=== PATIENT | male | born 1945 | race Caucasian/White ===

== ENCOUNTER 2022-03-19 07:58 | Inpatient (IN) | payer OTHER ==
[~2022-03-19] VITALS: Ht 180.3 cm; Wt 142.7 kg
[2022-03-19 08:00] VITALS: BP 113/62
[2022-03-19 08:51] LABS: BASO % 0.3 % (0.0-1.0); EOS # 0.3 10*3/uL (0.0-0.4); EOS % 1.9 % (1.0-4.0); HEMATOCRIT 37.5 % (42.0-52.0); MEAN CELL VOLUME 93.3 fl (80.0-94.0); MEAN CORPUSCULAR HGB 30.6 pg (27.0-31.0); MEAN CORPUSCULAR HGB CONC 32.8 g/dl (33.0-37.0); MEAN PLATELET VOLUME 10.7 fl (9.6-12.3); MONO # 1.4 10*3/uL (0.1-1.0); MONO % 9.6 % (3.0-9.0); NEUT # 11.8 10*3/uL (2.3-7.9); NEUT % 80.7 % (47.0-73.0); PLATELET COUNT AUTOMATED 213 10*3/uL (130-400); RED BLOOD COUNT 4.02 10*6/uL (4.50-5.90); RED CELL DISTRI WIDTH 14.1 % (0-14.5); WHITE BLOOD COUNT 14.7 10*3/uL (4.8-10.8)
[2022-03-19 09:07] LABS: ACT PARTIAL THROMBO TIME 36.7 SECONDS (20.0-32.1); INTERNATIONAL NORM RATIO 1.2 (2.0-3.5)
[2022-03-19 09:08] LABS: ALKALINE PHOSPHATASE 56 U/L (46-116); BUN 25 mg/dl (9-23); CHLORIDE 99 mmol/L (98-107); LIPASE 27 U/L (12-53); POTASSIUM 4.5 mmol/L (3.4-5.1); SGPT/ALT 7 U/L (10-49)
[2022-03-19 09:08] LABS: BILIRUBIN Negative (Negative); BLOOD 3+ (Negative); CLARITY Turbid (Clear); COLOR Yellow (Yellow); GLUCOSE 3+ (Negative); KETONE Negative (Negative); LEUKO ESTERASE 3+ (Negative); NITRITE Negative (Negative); SPECIFIC GRAVITY 1.025 (1.001-1.030)
[2022-03-19 09:20] LABS: WBC TNTC wbc/hpf (0-5)
[2022-03-19] MEDS ORDERED: XARELTO2.5 MG PO (09:53)
[2022-03-19] MEDS ORDERED: LYRICA200 M1 PO (09:53)
[2022-03-19 13:25] VITALS: BP 116/57
[2022-03-19 14:00] VITALS: BP 111/51
[2022-03-19] MEDS ORDERED: METFORMIN HYDR500 MG PO (14:43)
[2022-03-19] MEDS ORDERED: TROSPIUM CHLORI20 M1 PO (14:44)
[2022-03-19] MEDS ORDERED: ALTACE5 MG PO (14:45)
[2022-03-19] MEDS ORDERED: LASIX40 MG PO (14:46)
[2022-03-19] MEDS ORDERED: PREGABALIN300 MG PO (14:46)
[2022-03-19] MEDS ORDERED: JARDIANCE25 MG PO (14:47)
[2022-03-19] MEDS ORDERED: PRAVASTATIN SOD40 MG PO (14:47)
[2022-03-19 16:00] VITALS: BP 113/50
[2022-03-19 20:00] VITALS: BP 151/74
[2022-03-20] VITALS: BP 96/52
[2022-03-20 04:35] VITALS: BP 110/58
[2022-03-20 07:24] LABS: BASO # 0.1 10*3/uL (0.0-0.1); BASO % 0.3 % (0.0-1.0); EOS # 0.1 10*3/uL (0.0-0.4); EOS % 0.6 % (1.0-4.0); HEMATOCRIT 37.1 % (42.0-52.0); LYMPH % 6.7 % (27.0-41.0); MEAN CELL VOLUME 90.9 fl (80.0-94.0); MEAN CORPUSCULAR HGB 29.9 pg (27.0-31.0); MEAN CORPUSCULAR HGB CONC 32.9 g/dl (33.0-37.0); MEAN PLATELET VOLUME 11.1 fl (9.6-12.3); MONO # 1.4 10*3/uL (0.1-1.0); MONO % 9.6 % (3.0-9.0); NEUT # 11.9 10*3/uL (2.3-7.9); NEUT % 82.4 % (47.0-73.0); PLATELET COUNT AUTOMATED 223 10*3/uL (130-400); RED BLOOD COUNT 4.08 10*6/uL (4.50-5.90); RED CELL DISTRI WIDTH 14.2 % (0-14.5); WHITE BLOOD COUNT 14.5 10*3/uL (4.8-10.8)
[2022-03-20 07:59] LABS: BUN 18 mg/dl (9-23); CHLORIDE 98 mmol/L (98-107); CHOLESTEROL 119 mg/dL (<200); FREE T4 1.17 ng/dl (0.89-1.76); LDL CHOLESTEROL 69 mg/dL (9-159); POTASSIUM 4.3 mmol/L (3.4-5.1); THYROID STIM HORMONE (HS) 2.338 uIU/ml (0.550-4.780); TRIGLYCERIDES 77 mg/dl (<150)
[2022-03-20 08:00] VITALS: BP 133/51
[2022-03-20 12:00] VITALS: BP 132/55
[2022-03-20] MEDS ORDERED: AMOX-CLAV 875-1 EACH PO (12:29)
[2022-03-20] MEDS ORDERED: XARE20MG PO (12:29)
[2022-03-20] MEDS ORDERED: XARELTO20 M1 PO (12:38)
== END 2022-03-20 15:33 | disposition home or self-care (01) | DRG 872 ==
LOC: ED 07:58 → EDHOLD 11:53 → 4E 11:53
PROVIDERS: Emergency Medicine; Registered Nurse; ADMIT Internal Medicine; ATTEND Internal Medicine
DX: A41.9 Sepsis, unspecified organism (principal); N30.00 Acute cystitis without hematuria; E44.1 Mild protein-calorie malnutrition; C61 Malignant neoplasm of prostate; I48.91 Unspecified atrial fibrillation; R26.81 Unsteadiness on feet; J44.9 Chronic obstructive pulmonary disease, unspecified; E11.40 Type 2 diabetes mellitus with diabetic neuropathy, unspecified; I10 Essential (primary) hypertension; E11.51 Type 2 diabetes mellitus with diabetic peripheral angiopathy without gangrene; Z96.653 Presence of artificial knee joint, bilateral; Z82.3 Family history of stroke; Z80.9 Family history of malignant neoplasm, unspecified; Z98.49 Cataract extraction status, unspecified eye; Z79.899 Other long term (current) drug therapy